=== PATIENT | female | born 1990 | race American Indian/Alaskan Native ===

== ENCOUNTER 2021-08-30 12:01 | Observation (INO) | payer MEDICAID ==
[2021-08-30] MEDS: D5W/LACTATED RINGERS 1,000 ML IV SCH ×3 (15:08→19:30)
[2021-08-30] MEDS: METOCLOPRAMIDE 10 MG/2 ML INJ IV SCH ×2 (15:09→21:19)
[2021-08-30 15:12] LABS: Blood Urea Nitrogen 6 mg/dL (7-17); Calcium 9.7 mg/dL (8.4-10.2); Hemolysis Index 7
[2021-08-30] MEDS: PROMETHAZINE 25 MG RECT SUPP PR SCH ×2 (15:13→21:19)
[2021-08-30 15:14] LABS: BUN/Creatinine Ratio 12
[2021-08-30] MEDS: ONDANSETRON 4 MG/2 ML INJ IV PRN (17:51)
[2021-08-30 18:12] LABS: Bilirubin,Urine NEG (Negative); Blood,Urine NEG (Negative); Color,Urine Amber (Yellow)
[2021-08-30 18:13] LABS: RBC,Urine < 1.0 /HPF (0.0-6.0); WBC,Urine < 1.0 /HPF (0.0-6.0)
[2021-08-31] MEDS: D5W/LACTATED RINGERS 1,000 ML IV SCH ×3 (01:37→20:38)
[2021-08-31] MEDS: METOCLOPRAMIDE 10 MG/2 ML INJ IV SCH ×4 (04:54→21:52)
[2021-08-31] MEDS: PROMETHAZINE 25 MG RECT SUPP PR SCH (06:38)
[2021-08-31] MEDS: ONDANSETRON 4 MG/2 ML INJ IV PRN ×2 (08:29→20:34)
[2021-08-31] MEDS ORDERED: PRENATAL VIT27-FE FUMARATE-FOLIC ACID VIT TAB PO SCH (10:00)
--- NOTE | 2021-08-31 10:14 | History and Physical Report ---
History of Present Illness Date of examination: 08/31/21 Date of admission: 08/30/21 12:01 Chief complaint: cant keep anything down, dizzy, light headed, feeling weak History of present illness: EDC Confirmation: 03/22/2022 Gestational Age: 10 6/7 weeks on admission yesterday Past History : 2 Term Births: 1 Premature Births: 0 Living Children: 1 Para: 1 Mult. Births: 0 Prev : 0 Aborta: 0 Elect. Ab: 0 Spont. Ab: 0 Ectopics: 0 # 1 Weeks Gestation: 39 labor: no Delivery type: Anesthesia type: epidural weight: [id number] Comments: pt denies complications Past Medical History: Reviewed and updated today: Negative Past Medical History Past Surgical History: Reviewed and updated today: negative Family History Summary: First Degree Blood Relative - Has No Known Family History - Entered On: 08/30/2021 Social History: Smoking History: Patient has never smoked. Risk Factors: Smoked Tobacco Use: Never smoker Smokeless Tobacco Use: Never Passive Smoke Exposure: no HIV High Risk Behavior: no Exercise: yes Type of Exercise: occ Seatbelt Use: 100 % Family History Risk Factors: Family History of CO in 1 Female Relative Age < 65: no Family History of CO in 1 Male Relative Age < 55: no Dietary Counseling: yes Alcohol Use: no Drug Use: no Past Medical History Anesthesia Complications: negative Anemia: negative Autoimmune Disorder: negative Bleeding Disorder: negative Blood Transfusions: negative Breast Disease: negative Diabetes: negative Heart Disease: negative Hypertension: negative Hepatitis/Liver Disease: negative Kidney Disease/UTI: negative Neurologic/Epilepsy/Migraines: negative Phlebitis/Varicosities: negative Psychiatric: negative Pulmonary Disease/Asthma: negative Thyroid Disease: negative Hospitalizations: negative Surgery (Non-military pilot): negative Abnormal PAP: negative MATTHEW Exposure: negative Infertility: negative Uterine Anomaly: negative Uterine Surgery (not C/S): negative Other Gynecologic Problems: negative Social Hx: Smoking History: Patient has never smoked. Infection History Hx of STD: none HIV Risk Eval: no Hepatitis B Risk Eval: low risk Personal hx. of genital herpes: no Partner hx. of genital herpes: no Rash, Viral, or Febrile illness since last LMP? no Varicella/Chicken Pox Status: Previous Disease TB Risk: no Genetic History Congenital Heart Defect: Mom: no Dad: unknown Navi Disease: Mom: no Dad: unknown Thalassemia Mom: no Dad: unknown Neural Tube Defect Mom: no Dad: unknown Down's Syndrome Mom: no Dad: unknown Cruz-Sachs Mom: no Dad: unknown Sickle Cell Disease/Trait Mom: no Dad: unknown Hemophilia Mom: no Dad: unknown Muscular Dystrophy Mom: no Dad: unknown Cystic Fibrosis Mom: no Dad: unknown [place] Chorea Mom: no Dad: unknown Mental Retardation Mom: no Dad: unknown Fragile X Mom: no Dad: unknown Other Genetic/Chromosomal Disorder Mom: no Dad: unknown Child w/other defect Mom: no Dad: unknown Enviromental Exposures Enviromental Exposures Reviewed Xray Exposure: no Medication, drug, or alcohol use since LMP: no Chemical/Other Exposure: no Exposure to Cat Liter: no Hx of Parvovirus (Fifth Disease): no Occupational Exposure to Children: none Active Medications (reviewed today): None Current Allergies (reviewed today): No known allergies Past History Past Medical History: no pertinent history Past Surgical History: no surgical history Family/Genetic History: none Social history: no significant social history - Obstetrical History Expected Date of Delivery: 03/22/22 Actual Gestation: 11 Week(s) 0 Day(s) : 2 Para: 1 Hx # Term Pregnancies: 1 Number of Pregnancies: 0 Spontaneous Abortions: 0 Induced : 0 Number of Living Children: 1 Medications and Allergies Allergies Allergy/AdvReac Type Severity Reaction Status Date / Time No Known Allergies Allergy Unverified 08/31/21 10:48 Home Medications Medication Instructions Recorded Confirmed Last Taken Type Ondansetron [Zofran ODT TAB] 8 mg PO TID 08/30/21 08/30/21 1 Day Ago History ~08/29/21 Promethazine [Phenergan] 25 mg WA Q12HR 08/30/21 08/30/21 1 Day Ago History ~08/29/21 Pyridoxine HCl (Vitamin B6) 100 mg PO TID 08/30/21 08/30/21 1 Day Ago History [Vitamin B6] ~08/29/21 Active Meds: Active Medications Dextrose/Lactated Ringer's (D5lr) 1,000 mls @ 500 mls/hr IV DIRECT [facility] Stop: 08/31/21 14:59 Last Admin: 08/30/21 17:10 Dose: 500 mls/hr Dextrose/Lactated Ringer's (D5lr) 1,000 mls @ 150 mls/hr IV DIRECT [facility] Last Admin: 08/31/21 08:31 Dose: 150 mls/hr Metoclopramide HCl (Metoclopramide 10 Mg/2 Ml Inj) 10 mg IV Q6H [facility] Last Admin: 08/31/21 04:54 Dose: 10 mg Multivitamins/Iron/Calcium ( Tof74-Ww Fumarate-Folic Acid Vit Tab) 1 each PO QDAY [facility] Ondansetron HCl (Ondansetron 4 Mg/2 Ml Inj) 4 mg IV Q6H PRN PRN Reason: N/V unrelieved by Maral Last Admin: 08/31/21 08:29 Dose: 4 mg Promethazine HCl (Promethazine 25 Mg Rect Supp) 25 mg WA Q6H [facility] Last Admin: 08/31/21 06:38 Dose: Not Given Review of Systems All systems: negative Gastrointestinal: nausea, vomiting Genitourinary: other (decreased urine output) Neurological: weakness - Vital Signs Vital signs: Vital Signs Pulse Ox 100 08/30/21 14:15 Temp Pulse Resp BP Pulse Ox 98.3 F 87 16 117/81 97 08/31/21 08:45 08/31/21 08:45 08/31/21 08:45 08/31/21 08:45 08/31/21 08:45 - Physical Exam Breasts: Positive: deferred Cardiovascular: Regular rate Lungs: Positive: Normal air movement Abdomen: Positive: normal appearance, soft Extremities: Positive: normal - Obstetrical FHR comments: US yesterday with +FHT's in office daily dopplers ordered will order US for FHT's if unable to obtain doppler Uterine Contraction Monitor Mode: Palpation Uterine Contraction Pattern: Absent Uterine Tone Measurement Phase: Resting Results Result Diagrams: 08/30/21 14:00 Abnormal lab results 08/30/21 Range/Units 14:00 Carbon Dioxide 18 L (22-30) mmol/L BUN 6 L (7-17) mg/dL Creatinine 0.5 L (0.6-1.2) mg/dL All other labs normal. Laboratory Results from office visit 08/30/21 Routine Urinalysis Leukocytes: negative Nitrite: negative Urobilinogen: negative Protein: 3+ Blood: negative Ketone: large (160) Bilirubin: negative Glucose: negative Urine HCG: positive Assessment and Plan A: IUP @11wks gestation Hyperemesis Ketonuria dark urine, decreased output Near syncope P: Hyperemesis pathway D/C home when ketonuria resolved and able to tolerate PO Pt in distress when seen in office yesterday with complaints of severe nausea and vomiting, unable to keep any fluids or foods down for several days. Now no longer in distress, IV currently infusing D5LR. Pt reports still vomiting and unable to keep down PO juice and jello. POC d/w pt. Questions encouraged and addressed. Pt verbalizes understanding and agrees to POC as ordered. Dr. Sarah made aware. - Patient Problems (1) 10 weeks gestation of Current Visit: No Status: Acute (2) Hyperemesis Current Visit: No Status: Acute
--- NOTE | 2021-08-31 21:53 | Ultrasound Report ---
ULTRASOUND OBSTETRIC LIMITED INDICATION / CLINICAL INFORMATION: fwb. Clinical Gestational Age (GA) in weeks, days: 11, 0 TECHNIQUE: Transabdominal. COMPARISON: None available. FINDINGS: HEART RATE (beats per minute): 164 ADDITIONAL FINDINGS: None. IMPRESSION: 1. heart tones measured at 164 bpm. Signer Name: Ivan Bocanegra DO Signed: 08/31/2021 9:49 PM Workstation Name: [id number]
[2021-09-01] MEDS: PROMETHAZINE 25 MG RECT SUPP PR SCH (03:31)
[2021-09-01] MEDS: METOCLOPRAMIDE 10 MG/2 ML INJ IV SCH (03:55)
[2021-09-01] MEDS: D5W/LACTATED RINGERS 1,000 ML IV SCH (03:58)
--- NOTE | 2021-09-01 08:43 | Discharge Summary ---
Providers - Providers Date of Admission: 08/30/21 12:01 Date of discharge: 09/01/21 Attending physician: WANDY BROWN MD 08/30/21 12:55 Consult to Dietitian/Nutrition [CONS] Routine Physician Instructions: Reason For Exam: Reason for Consult: hyper grav Reason for Consult: Malnutrition Primary care physician: WANDY BROWN MD Hospitalization Reason for admission: hyperemesis Condition: Good Pertinent studies: ketones negative Procedures: rehydration Disposition: HOME / SELF CARE / HOMELESS Final Discharge Diagnosis (Prints w/discharge instructions): hyperemesis Time spent for discharge: 20 - Discharge Diagnoses (1) Hyperemesis Status: Acute Core Measure Documentation - Palliative Care Palliative Care/ Comfort Measures: Not Applicable - Core Measures Any of the following diagnoses?: none Exam - Constitutional Vitals: Temp Pulse Resp BP Pulse Ox 98.6 F 86 16 124/73 100 09/01/21 05:20 09/01/21 05:20 09/01/21 05:20 09/01/21 05:20 09/01/21 05:20 General appearance: Present: no acute distress, well-nourished - EENT Eyes: Present: PERRL ENT: hearing intact, clear oral mucosa - Neck Neck: Present: supple, normal ROM - Respiratory Respiratory effort: normal Respiratory: bilateral: CTA - Cardiovascular Rhythm: regular Heart Sounds: Absent: rub, click - Extremities Extremities: No edema Peripheral Pulses: within normal limits - Abdominal General gastrointestinal: Present: soft, non-tender, non-distended, normal bowel sounds Female genitourinary: Present: normal - Integumentary Integumentary: Present: clear, warm, dry - Musculoskeletal Musculoskeletal: gait normal, strength equal bilaterally - Psychiatric Psychiatric: appropriate mood/affect, intact judgment & insight - Neurologic Neurologic: CNII-XII intact, moves all extremities Plan Activity: no restrictions Diet: regular, advance as tolerated Follow up with: WANDY BROWN MD [Primary Care Provider] - 7 Days (Please call [phone] to schedule an appointment in 1 week. Call if unable to tolerate bland diet and clear liquids.) Prescriptions: Ondansetron [Zofran ODT TAB] 8 mg PO Q12HR #30 tab.rapdis
[2021-09-01 08:57] VITALS: BP 118/85
[2021-09-01] MEDS: ONDANSETRON 4 MG/2 ML INJ IV PRN (09:26)
== END 2021-09-01 11:00 | disposition home or self-care (01) ==
LOC: INTOOBSV 12:01 → OB 12:01
PROVIDERS: ADMIT Student in an Organized Health Care Education/Training Program; ATTEND Student in an Organized Health Care Education/Training Program
DX: O21.0 Mild hyperemesis gravidarum (principal); Z20.822 Contact with and (suspected) exposure to COVID-19; O26.891 Other specified pregnancy related conditions, first trimester; R55 Syncope and collapse; R42 Dizziness and giddiness; Z3A.11 11 weeks gestation of pregnancy; Z79.899 Other long term (current) drug therapy; Z98.890 Other specified postprocedural states
CPT/HCPCS: 36415; 76815; 80048; 81001; 82010; 84443; 96361; 96374; 96375; 96376; G0378; G0379; J2405; J2765; J7121; U0003; J7060